=== PATIENT | female | born 1995 | race Caucasian/White ===

== ENCOUNTER 2021-01-29 19:30 | Emergency (ER) | payer MEDICARE, MEDICAID, SELFPAY ==
--- NOTE | 2021-01-29 19:36 | XR_ITS ---
PROCEDURE: XR ANKLE RT MIN 3V CLINICAL INDICATION: twisted it Pain and swelling COMPARISON: No exams were available for comparison FINDINGS: No fracture or dislocation. No lytic or blastic change. There is normal mineralization. The joint spaces are well-preserved. No significant degenerative/arthritic changes. No erosive changes evident. Other findings:None. IMPRESSION: No acute findings. Dictated by: Kd Tripp MD 01/30/2021 07:23 Kd Tripp MD in [place] 01/30/2021 07:23
[2021-01-29 19:40] VITALS: BP 149/85; PULSE 94; RESP 17; TEMP 36.8; O2SAT 99; BMI 40.6
--- NOTE | 2021-01-29 19:59 | HMH.EDUTC ---
[facility] [place]ression: Right ankle sprain Qualifiers: Encounter type: initial encounter Involved ligament of ankle: unspecified ligament Qualified Code(s): S93.401A - Sprain of unspecified ligament of right ankle, initial encounter Disposition: Home, Self-Care Condition on Discharge: Good Instructions: DI for Ankle Sprain Additional Instructions: Weightbearing as tolerated rest Ice with cold pack for 20 minutes remove may repeat for comfort every hour Xiang wrap for support and swelling no less in the shower. Be sure not too tight but not to lose either Elevate with ankle above your heart as much as possible to help reduce swelling and therefore pain Ibuprofen every 6 hours as needed for pain or inflammation. If needs something more you can take Tylenol every 4 hours as needed as long as her primary care has told he was okayed for you to take both. If improving any do not need to follow-up you can bring begin exercising 2-3 weeks after injury. Follow-up immediately if new or worsening symptoms or no noticeable improvement over the next 3-5 days. call ortho Referrals: Juan Ruth [Primary Care Provider] - Time of Disposition: 20:03 Medical Decision Making - Chase Inquiry Pt receiving controlled substance: No Vital Signs: 01/29/21 19:40 Temperature 98.2 F Temperature Source Oral Pulse Rate [Right Brachial] 94 H Respiratory Rate 17 Blood Pressure [Right Arm] 149/85 H Blood Pressure Mean [Right Arm] 106 Blood Pressure Source [Right Arm] Automatic Cuff Blood Pressure Position [Right Arm] Sitting 02 Sat by Pulse Oximetry 99 Oxygen Delivery Method Room Air Orders (Tests/Meds): ORDERS Category Date Time Status XR ankle RT min 3V Stat Exams 01/29/21 19:36 Taken [facility] [place] - General Chief complaint: Urgent [facility] Stated complaint: [id number] r ankle injury Time Seen by Provider: 01/29/21 19:59 Mode of Arrival: Ambulatory Source of Information: Patient Limitations: No Limitations Description of Symptoms (Recalled from Triage Doc. by RN): PATIENT STATES SHE ROLLED HER ANKLE AT 1930 THIS EVENING HEENT Symptoms (Recalled from RN notes): No Resp Symptoms (Recalled from RN notes): No Skin Symptoms (Recalled from RN notes): No MS Symptoms (Recalled from RN notes): Yes Functional Status (Recalled from RN notes): WNL - History of Present Illness Provider Complaint: 25 yr old female presents for rt foot pain. pt states she was walking in her drive way and she stepped down and rolled her ankle. - Related Data Home Medications Medication Instructions Recorded Confirmed Divalproex Sodium [Divalproex 500 mg PO HS 03/24/19 05/15/19 Sodium ER] Insulin Degludec [Tresiba 74 units SQ HS 03/24/19 05/15/19 Flextouch U-100] Losartan Potassium [Cozaar] 25 mg PO DAILY 03/24/19 05/15/19 Previous Rx's Medication Instructions Recorded Fluconazole [Diflucan 150mg tab] 150 mg PO ONCE #1 tab 05/15/19 Allergies Allergy/AdvReac Type Severity Reaction Status Date / Time amoxicillin Allergy Verified 05/15/19 09:46 codeine Allergy Verified 03/24/19 09:37 diphenhydramine Allergy Verified 03/24/19 09:37 [From Benadryl] Latex, Natural Rubber Allergy Verified 05/15/19 09:46 Penicillins Allergy Verified 05/15/19 09:46 - Worker's Comp Is this a Worker's Comp case?: No [facility] History - Hepatitis A Screen Drug use history?: No High risk sexual behaviors?: No History of sexually transmitted infection?: No Currently employed?: No Childcare worker?: No Do you have indoor plumbing?: Yes Do you have electricity?: Yes Attestation statement:: This patient has been screened for Hepatitis A risk factors. I have reviewed the patient's past medical history: Yes Medical History: Reports:: Diabetes Mellitus Type 2 - Social History Alcohol Intake: never Occupational Status: other ROS Obtained: Yes Systems reviewed as appropriate & no additional complaints - Con
[2021-01-29 20:12] VITALS: BP 149/85; PULSE 94; RESP 17; TEMP 36.8; O2SAT 99
== END 2021-01-29 20:13 | disposition home or self-care (01) ==
PROVIDERS: Emergency Provider Nurse Practitioner Family; PCP Family Medicine
DX: S93.401A Sprain of unspecified ligament of right ankle, initial encounter (principal); X50.1XXA Overexertion from prolonged static or awkward postures, initial encounter; Y92.019 Unspecified place in single-family (private) house as the place of occurrence of the external cause; Z88.0 Allergy status to penicillin; Z88.5 Allergy status to narcotic agent
CPT/HCPCS: G0463; 73610; 99202

== ENCOUNTER 2021-04-03 16:19 | Emergency (ER) | payer MEDICAID, SELFPAY ==
[2021-04-03 16:32] VITALS: BP 150/88; PULSE 111; RESP 16; TEMP 36.6; O2SAT 98; BMI 41.9
--- NOTE | 2021-04-03 16:40 | XR_ITS ---
PROCEDURE INFORMATION: Exam: XR Left Knee Exam date and time: 04/03/2021 4:40 PM Age: 25 years old Clinical indication: Left; Patient HX: [place] pop in knee, lateral knee pain TECHNIQUE: Imaging protocol: XR Left knee. Views: 3 views. COMPARISON: No relevant prior studies available. FINDINGS: Bones/joints: There is no evidence of acute fracture. There is no evidence of joint malalignment or dislocation. Soft tissues: There are no soft tissue masses or fluid collections. IMPRESSION: 1. No evidence of acute fracture. 2. No evidence of acute dislocation.
--- NOTE | 2021-04-03 16:51 | HMH.EDUTC ---
[facility] [place] Clinical Impression: Knee pain, right Qualifiers: Chronicity: acute Qualified Code(s): M25.561 - Pain in right knee Disposition: Home, Self-Care Condition on Discharge: Good Instructions: DI for Knee Pain Additional Instructions: Weightbearing as tolerated rest Ice with cold pack for 20 minutes remove may repeat for comfort every hour Xiang wrap for support and swelling no less in the shower. Be sure not too tight but not to lose either Elevate with ankle above your heart as much as possible to help reduce swelling and therefore pain Ibuprofen every 6 hours as needed for pain or inflammation. If needs something more you can take Tylenol every 4 hours as needed as long as her primary care has told he was okayed for you to take both. If improving any do not need to follow-up you can bring begin exercising 2-3 weeks after injury. Follow-up immediately if new or worsening symptoms or no noticeable improvement over the next 3-5 days. call ortho Referrals: Juan Ruth [Primary Care Provider] - Time of Disposition: 17:08 Medical Decision Making - Chase Inquiry Pt receiving controlled substance: No Vital Signs: 04/03/21 16:32 Temperature 97.9 F Temperature Source Oral Pulse Rate [Right] 111 H Respiratory Rate 16 Blood Pressure [Right Arm] 150/88 H Blood Pressure Mean [Right Arm] 108 02 Sat by Pulse Oximetry 98 Oxygen Delivery Method Room Air Orders (Tests/Meds): ORDERS Category Date Time Status Knee XR left 3 views [XR knee LT 3V] Stat Exams 04/03/21 16:40 Ordered [facility] [place] - General Chief complaint: Urgent Treatment Center Stated complaint: lt knee pain Time Seen by Provider: 04/03/21 16:52 Mode of Arrival: Ambulatory Source of Information: Patient Limitations: No Limitations Description of Symptoms (Recalled from Triage Doc. by RN): pt states she was showering and suddenly felt a, pop, crack hard to walk, and was sent her by her PCP. HEENT Symptoms (Recalled from RN notes): No Resp Symptoms (Recalled from RN notes): No Skin Symptoms (Recalled from RN notes): No MS Symptoms (Recalled from RN notes): Yes (L knee pain) Functional Status (Recalled from RN notes): na - History of Present Illness Provider Complaint: 25 yr old female presents for left knee pain.pt states she was showering and suddenly felt a, pop, crack hard to walk, and was sent her by her PCP. - Related Data Home Medications Medication Instructions Recorded Confirmed Divalproex Sodium [Divalproex 500 mg PO HS 03/24/19 05/15/19 Sodium ER] Insulin Degludec [Tresiba 74 units SQ HS 03/24/19 05/15/19 Flextouch U-100] Losartan Potassium [Cozaar] 25 mg PO DAILY 03/24/19 05/15/19 Previous Rx's Medication Instructions Recorded Fluconazole [Diflucan 150mg tab] 150 mg PO ONCE #1 tab 05/15/19 Allergies Allergy/AdvReac Type Severity Reaction Status Date / Time amoxicillin Allergy Verified 05/15/19 09:46 codeine Allergy Verified 03/24/19 09:37 diphenhydramine Allergy Verified 03/24/19 09:37 [From Benadryl] Latex, Natural Rubber Allergy Verified 05/15/19 09:46 Penicillins Allergy Verified 05/15/19 09:46 - Worker's Comp Is this a Worker's Comp case?: No [facility] History - Hepatitis A Screen Drug use history?: No High risk sexual behaviors?: No History of sexually transmitted infection?: No Currently employed?: No Childcare worker?: No Do you have indoor plumbing?: Yes Do you have electricity?: Yes Attestation statement:: This patient has been screened for Hepatitis A risk factors. I have reviewed the patient's past medical history: Yes Medical History: Reports:: Diabetes Mellitus Type 2 - Social History Alcohol Intake: never Occupational Status: other ROS Obtained: Yes Systems reviewed as appropriate & no additional complaints - Constitutional Constitutional: Reports system reviewed and no additional complaints, except as docu, Denies poor appetite - Eyes Ey
[2021-04-03 17:22] VITALS: BP 148/88; PULSE 101; RESP 17; TEMP 36.6
== END 2021-04-03 17:27 | disposition home or self-care (01) ==
PROVIDERS: Emergency Provider Nurse Practitioner Family; PCP Family Medicine
DX: M25.562 Pain in left knee (principal)
CPT/HCPCS: 73562; 99202; G0463

== ENCOUNTER 2021-06-13 18:06 | Emergency (ER) | payer MEDICARE, MEDICAID, SELFPAY ==
[2021-06-13 20:00] VITALS: BP 152/86; PULSE 90; RESP 20; TEMP 36.9; O2SAT 97; BMI 42.7
--- NOTE | 2021-06-13 20:17 | HMH.EDUTC ---
[facility] [place] Clinical Impression: Strep throat Disposition: Home, Self-Care Condition on Discharge: Good Instructions: DI for Strep Throat, Strep Throat, Cephalexin Additional Instructions: *Monitor Temp, Over the counter Motrin or Tylenol as directed/as needed Tylenol every 4 hours and Motrin every 6 hours (as long as your family doctor has told you that you can take it) for fever or pa-in. and straight to ER if unable to lower temp less than 101.0 after medication given *Warm salt water gargles may help to soothe the throat *Throat Lozenges *Warm fluids like tea with honey may help to soothe the throat *Sleep elevated *Humidifier/Vaporizer Take antibotics as prescribed Follow up IMMEDIATELY for new or worsening symptoms or no Noticeable improvement over the next 48-72 hours. 911 for difficulty breathing or swallowing You were tested for today for COVID19 your test result should be back in the next 24-48 hours, Check the [facility] Portal to see if your test results are back in the next 48 it may say detected that means your result is positive.You was given handout instructions on how log on and see your results. If you do not have internet access you may call the [facility] for your results [phone] You was given a handout with instructions for Self Quarantine and Self isolation for while you wait on test results and what to do if they are positive If you are positive the Health Dept will be contacting you also Make sure to take your Vitamins Vit. C Vit D and Zinc if you can take them Prescriptions: cephALEXin [Cephalexin 500mg Tab] 500 mg PO BID 10 Days #20 tab Transmission Status: Pending to [id number] Referrals: Juan Ruth [Primary Care Provider] - As needed Time of Disposition: 20:32 Medical Decision Making - Chase Inquiry Pt receiving controlled substance: No Chase was queried for this patient: No Vital Signs: 06/13/21 20:00 Temperature 98.4 F Temperature Source Oral Pulse Rate [Right Brachial] 90 Respiratory Rate 20 Blood Pressure [Right Arm] 152/86 H Blood Pressure Mean [Right Arm] 108 Blood Pressure Source [Right Arm] Automatic Cuff Blood Pressure Position [Right Arm] Sitting 02 Sat by Pulse Oximetry 97 Oxygen Delivery Method Room Air - Lab Data Lab results reviewed: Yes: I reviewed the patient's lab results. Orders (Tests/Meds): ORDERS Category Date Time Status Covid-19 Nasal PCR ([facility]) Routine Lab 06/13/21 20:14 Ordered Medical Decision Narrative: Patient states that she is allergic to PCN and Amoxicillin but has taken cephalexin in the past without reactions or complications [facility] [place] - General Stated complaint: covid test/strep test Time Seen by Provider: 06/13/21 20:17 Mode of Arrival: Ambulatory Source of Information: Patient Limitations: No Limitations Description of Symptoms (Recalled from Triage Doc. by RN): PATIENT C/O COUGH, RUNNY NOSE, NAUSEA, DIARRHEA, AND FEVER X 2 DAYS HEENT Symptoms (Recalled from RN notes): Yes Resp Symptoms (Recalled from RN notes): No Skin Symptoms (Recalled from RN notes): No MS Symptoms (Recalled from RN notes): No Functional Status (Recalled from RN notes): WNL - History of Present Illness Provider Complaint: Patient states that she has not felt well for several days States that she has been having sore throat, fever, diarrhea, body aches and runny nose States that she was worried that she may have COVID or strep throat and wanted to get tested - Related Data Home Medications Medication Instructions Recorded Confirmed Divalproex Sodium [Divalproex 500 mg PO HS 03/24/19 05/15/19 Sodium ER] Insulin Degludec [Tresiba 74 units SQ HS 03/24/19 05/15/19 Flextouch U-100] Losartan Potassium [Cozaar] 25 mg PO DAILY 03/24/19 05/15/19 Previous Rx's Medication Instructions Recorded Fluconazole [Diflucan 150mg tab] 150 mg PO ONCE #1 tab 05/15/19 cephALEXin [Cephalexin 500mg Tab] 500 mg PO BID 10 Days #20 tab 08
[2021-06-13 20:21] LABS: UTC Strep Screen (Rapid) Positive (Negative)
[2021-06-13 20:27] LABS: UTC Pregnancy Test, Urine Negative (Negative)
[2021-06-13 20:32] VITALS: BP 152/86; PULSE 90; RESP 20; TEMP 36.9; O2SAT 97
== END 2021-06-13 20:39 | disposition home or self-care (01) ==
PROVIDERS: Emergency Provider Nurse Practitioner; PCP Family Medicine
DX: J02.0 Streptococcal pharyngitis (principal)
CPT/HCPCS: G0463; 81025; 87880; 99203; U0003

== ENCOUNTER 2021-08-14 14:51 | Emergency (ER) | payer MEDICARE, MEDICAID, SELFPAY ==
[2021-08-14 14:52] VITALS: BP 163/91; PULSE 124; RESP 20; TEMP 37.4; O2SAT 98; BMI 43.2; BMI 44.6
--- NOTE | 2021-08-14 15:24 | CT_ITS ---
PROCEDURE INFORMATION: Exam: CT Head Without Contrast Exam date and time: 08/14/2021 3:24 PM Age: 26 years old Clinical indication: Pain; Other: Confusion and headache; Additional info: Marjorie today, history of pituitary mass TECHNIQUE: Imaging protocol: Computed tomography of the head without contrast. Radiation optimization: All CT scans at this facility use at least one of these dose optimization techniques: automated exposure control; mA and/or kV adjustment per patient size (includes targeted exams where dose is matched to clinical indication); or iterative reconstruction. COMPARISON: No relevant prior studies available. FINDINGS: Brain: Normal. No hemorrhage. Unremarkable white matter. No mass effect. Cerebral ventricles: No ventriculomegaly. Paranasal sinuses: Visualized sinuses are unremarkable. No fluid levels. Mastoid air cells: Visualized mastoid air cells are well aerated. Bones/joints: Unremarkable. No acute fracture. Soft tissues: Unremarkable. IMPRESSION: No acute intracranial abnormality.
--- NOTE | 2021-08-14 16:36 | HMH.EDGENADL ---
ED Disposition Clinical Impression: Seizure Disposition: Home, Self-Care Condition on Discharge: Good Instructions: DI for Seizure Disorder -- Adult, DI for Seizure (Not Epilepsy/Seizure Disorder), DI for Seizure Disorder -- Child Referrals: Juan Ruth [Primary Care Provider] - - Critical Care Critical Care Time: No Attestation: On 08/14/21, the high probability of a clinically significant, sudden or life threatening deterioration of the following system(s) required my full and direct attention, intervention and personal management. The time I documented below is in addition to time spent performing reported procedures but includes the following listed in this critical care notation. Medical Decision Making - Medical Records Medical records reviewed: Yes: I reviewed the patient's medical records. - Chase Inquiry Pt receiving controlled substance: No Vital Signs: 08/14/21 14:52 Temperature 99.3 F Temperature Source Oral Pulse Rate [Radial] 124 H Respiratory Rate 20 Blood Pressure [Right Arm] 163/91 H Blood Pressure Mean [Right Arm] 115 Blood Pressure Position [Right Arm] Sitting 02 Sat by Pulse Oximetry 98 Oxygen Delivery Method Room Air - Lab Data Lab Results 08/14/21 16:30: Sodium 142, Potassium 4.4, Chloride 109 H, Carbon Dioxide 23, Anion Gap 14.4, BUN 5 L, Creatinine 0.50 L, Estimated Creat Clear 145, Estimated GFR 147, Est GFR ( Amer) 178, Glucose 152 H, Calcium 9.8, Total Bilirubin 0.4, AST 30, ALT 22, Alkaline Phosphatase 71, Total Protein 7.8, Albumin 4.2, Globulin 3.6 H, Albumin/Globulin Ratio 1.2, Total Valproic Acid 21.0 L 08/14/21 16:30: Urine Color Yellow, Urine Appearance Clear, Urine pH 7.0, Ur Specific Dalton 1.015, Urine Protein Negative, Urine Glucose (UA) Trace, Urine Ketones Negative, Urine Blood Negative, Urine Nitrate Negative, Urine Bilirubin Negative, Urine Urobilinogen 0.2, Ur Leukocyte Esterase Negative, Urine RBC Occasional, Urine WBC 3-5, Ur Squamous Epith Cells 5-10, Urine Bacteria Trace 08/14/21 16:30: Urine HCG, Qual Negative 08/14/21 16:37: WBC 9.4, RBC 5.14, Hgb 14.8, Hct 46.6, MCV 90.6, MCH 28.9, MCHC 31.8, RDW 14.2, Plt Count 414, MPV 8.2, Neut % (Auto) 62.8, Lymph % (Auto) 30.9, Rose[place] % (Auto) 3.7, Eos % (Auto) 1.8, Baso % (Auto) 0.8, Neut # (Auto) 5.9, Lymph # (Auto) 2.9, Rose[place] # (Auto) 0.4, Eos # (Auto) 0.2, Baso # (Auto) 0.1 Result diagrams: 08/14/21 16:37 08/14/21 16:30 Medical Decision Narrative: Patient is a 26-year-old female presents the ED today after a seizure several days ago. 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 Given my examination and that patient is nonfocal I have low concern for serious intracranial pathology at this point, however we will order CBC CMP urinalysis, test, CT head without IV contrast. MRI unavailable at this time, however patient should follow up with her primary care provider and should they deem it necessary they can order an MRI from there. Lab evaluation completed non no acute abnormalities on CBC that require correction, no significant electrolyte alterations, CT head read without any evidence of intracranial pathology. These results have been discussed with the patient, on further evaluation with the patient, patient states that she missed work today and needs a work excuse, patient advised to follow-up with her primary care provider, return to the ED for further evidence of seizures, patient is compliant with her medications and I stressed the importance of this to her at home. Patient is to return to the ED with any onset of neurologic deficits, or acute distress, or strange symptoms that are uncommon to her. Patient verbalized understanding with this plan. General A
[2021-08-14 16:38] LABS: Microscopic, Urine URINE MICROSCOPIC (MICROSCOPIC)
[2021-08-14 16:40] LABS: Appearance,Urine CLEAR (Clear); Bilirubin,Urine Negative (Negative); Blood, Urine Negative (Negative); Color,Urine YELLOW (Yellow); Glucose,Urine (UA) TRACE (Negative); Ketones,Urine Negative (Negative); Leukocyte Esterase,Urine Negative (Negative); Nitrate,Urine Negative (Negative); Protein,Urine Negative (Negative); Specific Gravity, Urine 1.015 (1.005-1.030); Urobilinogen,Urine 0.2 EU/dl (0.2)
[2021-08-14 16:47] LABS: Urine Pregnancy, HCG Qual. Negative (Negative)
[2021-08-14 16:50] LABS: Basophils # 0.1 K/mm3 (0-0.2); Basophils % 0.8 % (0.1-2.0); Eosinophils # 0.2 K/mm3 (0.0-0.4); Eosinophils % 1.8 % (0.1-12.0); Hematocrit 46.6 % (37.0-47.0); Hemoglobin 14.8 g/dL (12.2-16.2); Lymphocytes # 2.9 K/mm3 (0.7-4.5); Lymphocytes % 30.9 % (10-50); Mean Corpuscular HGB Conc 31.8 g/dL (31.8-35.4); Mean Corpuscular Hemoglobin 28.9 pg (27.0-31.2); Mean Corpuscular Volume 90.6 fl (81-99); Mean Platelet Volume 8.2 fl (7.4-10.4); Monocytes # 0.4 K/mm3 (0.1-1.0); Monocytes % 3.7 % (1.7-9.3); Neutrophils # 5.9 K/mm3 (1.8-7.8); Neutrophils % 62.8 % (37.0-80.0); Platelet Count 414 K/mm3 (142-424); Red Blood Count 5.14 M/mm3 (4.20-5.40); Red Cell Distribution Width 14.2 % (11.5-17.5); White Blood Count 9.4 K/mm3 (4.8-10.8)
[2021-08-14 16:50] LABS: Alanine Aminotransferase 22 U/L (12-78); Albumin Level 4.2 g/dl (3.5-5.0); Albumin/Globulin Ratio 1.2 (1.1-1.8); Alkaline Phosphatase 71 U/L (38-126); Anion Gap 14.4 mEq/L (5-15); Aspartate Amino Transferase 30 U/L (14-36); Bilirubin,Total 0.4 mg/dl (0.2-1.3); Blood Urea Nitrogen 5 mg/dl (7-17); Calcium 9.8 mg/dl (8.4-10.2); Carbon Dioxide 23 mmol/L (22.0-30.0); Chloride 109 mmol/L (98-107); Creatinine Clearance Estimated 145 mL/min (50-200); Estimated Glomerular Filt Rate 147 ml/min (>60); GFR (African American) 178 ML/MIN (>60); Globulin 3.6 g/dL (1.3-3.2); Glucose 152 mg/dl (74-100); Potassium 4.4 mmoL/L (3.5-5.1); Sodium 142 mmol/L (136-145); Total Protein,Serum 7.8 g/dl (6.3-8.2)
[2021-08-14 17:00] LABS: Bacteria,Urine Trace /lpf; RBC,Urine Occasional #/hpf (0-3)
[2021-08-14 18:09] VITALS: BP 150/78; PULSE 78; RESP 16; TEMP 36.6; O2SAT 98
== END 2021-08-14 18:10 | disposition home or self-care (01) ==
PROVIDERS: Emergency Provider Student in an Organized Health Care Education/Training Program; PCP Family Medicine
DX: G40.909 Epilepsy, unspecified, not intractable, without status epilepticus (principal); Z88.0 Allergy status to penicillin; Z88.8 Allergy status to other drugs, medicaments and biological substances
CPT/HCPCS: 70450; 80053; 80164; 81001; 81025; 85025; 99283

== ENCOUNTER 2021-09-08 08:49 | Emergency (ER) | payer MEDICARE, MEDICAID, SELFPAY ==
[2021-09-08 08:51] VITALS: BP 130/88; PULSE 117; RESP 14; TEMP 37.1; O2SAT 99; BMI 43.2
--- NOTE | 2021-09-08 09:08 | XR_ITS ---
PROCEDURE INFORMATION: Exam: XR Chest Exam date and time: 09/08/2021 9:08 AM Age: 26 years old Clinical indication: Cough; Additional info: History of pneumonia; Cough; Chest pain TECHNIQUE: Imaging protocol: XR of the chest. Views: 1 view. COMPARISON: CR Abdomen 03/24/2019 11:07 AM FINDINGS: Lungs: Unremarkable. No consolidation. Pleural spaces: Unremarkable. No pleural effusion. No pneumothorax. Heart/Mediastinum: Unremarkable. No cardiomegaly. Bones/joints: Unremarkable. IMPRESSION: No acute findings.
[2021-09-08 09:28] LABS: Urine Pregnancy, HCG Qual. Negative (Negative)
--- NOTE | 2021-09-08 09:34 | HMH.EDGENADL ---
ED Disposition Clinical Impression: Upper respiratory infection Qualifiers: URI type: unspecified viral URI Qualified Code(s): J06.9 - Acute upper respiratory infection, unspecified Disposition: Home, Self-Care Condition on Discharge: Good Instructions: DI for Viral Upper Respiratory Infection -- Adult Referrals: Juan Ruth [Primary Care Provider] - Time of Disposition: 11:31 - Critical Care Critical Care Time: No Attestation: On 09/08/21, the high probability of a clinically significant, sudden or life threatening deterioration of the following system(s) required my full and direct attention, intervention and personal management. The time I documented below is in addition to time spent performing reported procedures but includes the following listed in this critical care notation. Medical Decision Making - Medical Records Medical records reviewed: Yes: I reviewed the patient's medical records. - Chase Inquiry Pt receiving controlled substance: No Vital Signs: 09/08/21 08:51 09/08/21 10:01 Temperature 98.7 F Temperature Source Oral Pulse Rate 111 H Pulse Rate [Right Radial] 117 H Respiratory Rate 14 18 Blood Pressure 151/79 H Blood Pressure [Right Arm] 130/88 Blood Pressure Mean 93 Blood Pressure Mean [Right Arm] 102 Blood Pressure Source [Right Arm] Automatic Cuff Blood Pressure Position [Right Arm] Sitting 02 Sat by Pulse Oximetry 99 100 Oxygen Delivery Method Room Air - Lab Data Lab Results 09/08/21 09:12: Urine HCG, Qual Negative 09/08/21 09:50: WBC 6.3, RBC 4.57, Hgb 13.2, Hct 40.4, MCV 88.5, MCH 28.9, MCHC 32.6, RDW 14.4, Plt Count 353, MPV 7.9, Neut % (Auto) 64.2, Lymph % (Auto) 26.1, [place] % (Auto) 6.1, Eos % (Auto) 2.9, Baso % (Auto) 0.7, Neut # (Auto) 4.0, Lymph # (Auto) 1.6, [place] # (Auto) 0.4, Eos # (Auto) 0.2, Baso # (Auto) 0.1 09/08/21 09:50: Sodium 141, Potassium 3.9, Chloride 108 H, Carbon Dioxide 27, Anion Gap 9.9, BUN 2 L, Creatinine 0.60, Estimated Creat Clear 126, Estimated GFR 119, Est GFR ( Amer) 144, Glucose 135 H, Calcium 8.9, Magnesium 2.2, Troponin I < 0.01 09/08/21 09:50: SARS-CoV-2 (PCR) Not detected, Influenza A Untype (PCR) Not detected, Influenza Type B (PCR) Not detected Result diagrams: 09/08/21 09:50 09/08/21 09:50 Orders (Tests/Meds): ED MEDICATIONS Discontinued Medications Generic Name Dose Route Start Last Admin Trade Name Freq PRN Reason Stop Dose Admin Acetaminophen 1,000 mg 09/08/21 09:08 09/08/21 10:20 Acetaminophen 500mg Tab PO 09/08/21 09:09 1,000 mg ONCE ONE Administration Dexamethasone 10 mg 09/08/21 09:08 09/08/21 10:21 Dexamethasone 4mg Tablet PO 09/08/21 09:09 Not Given ONCE ONE Dexamethasone Sodium Phosphate 10 mg 09/08/21 10:30 09/08/21 10:23 Dexamethasone 4mg/Ml 5ml Mdv IM 10/08/21 10:29 Not Given Q6H [facility] Dexamethasone Sodium Phosphate 10 mg 09/08/21 10:23 09/08/21 10:26 Dexamethasone 4mg/Ml 5ml Mdv IM 09/08/21 10:24 Not Given ONCE ONE Dexamethasone Sodium Phosphate 10 mg 09/08/21 10:26 09/08/21 10:27 Dexamethasone 4mg/Ml 5ml Mdv IV 09/08/21 10:27 10 mg ONCE ONE Administration Lactated Ringer's 1,000 mls @ 999 mls/hr 09/08/21 09:15 09/08/21 10:20 Lactated Ringer's 1000 Ml Bag IV 09/08/21 10:15 999 mls/hr .Q1H1M VENECIA Administration ORDERS Category Date Time Status Troponin I Q3H Lab 09/08/21 12:15 Ordered Troponin I Q3H Lab 09/08/21 15:15 Ordered ECG Request by /Nse Stat Y 09/08/21 09:08 Stop Req Medical Decision Narrative: 26-year-old female with past medical history of type 1 diabetes, stage I CKD, bipolar, depression, and history of pneumonia x2 who presents to the emergency department with chief complaint of sore throat, cough, chest pain, and concerns that she may have pneumonia again. On arrival, patient is well-appearing but tachycardic to the 120s. She is very anxious, but states that hospitals in general make her anxiou
[2021-09-08 10:01] VITALS: BP 151/79; PULSE 111; RESP 18; O2SAT 100
--- NOTE | 2021-09-08 10:13 | ECG_ITS ---
APPROVED REPORT Exam: Resting ECG HR:105 bpm ECG Measurements Heart Rate 105 AXES MT 126 P 52 QRSd 80 QRS 59 QT 342 T 41 QTc 452 Conclusion Sinus tachycardia Otherwise normal ECG Electronically signed by : Drew Chapa MD 09/10/2021 10:03:23
[2021-09-08 10:28] LABS: Coronavirus 19, PCR Not Detected (NotDetected); Influenza A, PCR Not Detected (NotDetected); Influenza B, PCR Not Detected (NotDetected)
[2021-09-08 10:31] LABS: Basophils # 0.1 K/mm3 (0-0.2); Basophils % 0.7 % (0.1-2.0); Eosinophils # 0.2 K/mm3 (0.0-0.4); Eosinophils % 2.9 % (0.1-12.0); Hematocrit 40.4 % (37.0-47.0); Hemoglobin 13.2 g/dL (12.2-16.2); Lymphocytes # 1.6 K/mm3 (0.7-4.5); Lymphocytes % 26.1 % (10-50); Mean Corpuscular HGB Conc 32.6 g/dL (31.8-35.4); Mean Corpuscular Hemoglobin 28.9 pg (27.0-31.2); Mean Corpuscular Volume 88.5 fl (81-99); Mean Platelet Volume 7.9 fl (7.4-10.4); Monocytes # 0.4 K/mm3 (0.1-1.0); Monocytes % 6.1 % (1.7-9.3); Neutrophils % 64.2 % (37.0-80.0); Platelet Count 353 K/mm3 (142-424); Red Blood Count 4.57 M/mm3 (4.20-5.40); Red Cell Distribution Width 14.4 % (11.5-17.5); White Blood Count 6.3 K/mm3 (4.8-10.8)
[2021-09-08 10:34] LABS: Chloride 108 mmol/L (98-107); Potassium 3.9 mmoL/L (3.5-5.1); Sodium 141 mmol/L (136-145)
[2021-09-08 10:37] LABS: Anion Gap 9.9 mEq/L (5-15); Blood Urea Nitrogen 2 mg/dl (7-17); Calcium 8.9 mg/dl (8.4-10.2); Carbon Dioxide 27 mmol/L (22.0-30.0); Creatinine Clearance Estimated 126 mL/min (50-200); Estimated Glomerular Filt Rate 119 ml/min (>60); GFR (African American) 144 ML/MIN (>60); Glucose 135 mg/dl (74-100); Magnesium 2.2 mg/dl (1.6-2.3)
[2021-09-08 10:52] LABS: Troponin I < 0.01 ng/ml (0.00-0.034)
[2021-09-08 11:47] VITALS: BP 141/80; PULSE 104; RESP 20; TEMP 37.1; O2SAT 98
== END 2021-09-08 11:49 | disposition home or self-care (01) ==
PROVIDERS: Emergency Provider Emergency Medicine; PCP Family Medicine
DX: J06.9 Acute upper respiratory infection, unspecified (principal); E10.9 Type 1 diabetes mellitus without complications; F41.9 Anxiety disorder, unspecified
CPT/HCPCS: 71045; 80048; 81025; 83735; 84484; 85025; 93005; 96365; 96375; 99284; C9803; U0003; U0005